=== PATIENT | male | born 1950 | race Caucasian/White ===

== ENCOUNTER 2018-10-15 18:38 | Inpatient (IN) | payer OTHER ==
[~2018-10-15] VITALS: Ht 182.9 cm; Wt 136.6 kg
--- NOTE | ~2018-10-15 | HC ---
[facility] [place] [address] [address] CONSULTATION Name: TARAH MELGAR Room #: 427-P ADM IN M.R.#: [id number] Admission: 10/15/18 Attend Phys: Joseph Caruso MD Discharge: Date of : 48 Report #: [id number] THIS REPORT FOR: //name// CC: Alis Caruso DATE OF SERVICE: 10/16/2018 CHIEF COMPLAINT: Left third toe ulceration with osteomyelitis. HISTORY OF PRESENT ILLNESS: This is a 67-year-old male patient who was admitted to the hospital through the Emergency Department after noting swelling and an open wound to the left third toe. Apparently, it has just been draining for the last couple of days. He has a history of diabetes mellitus and previous osteomyelitis of the second toe and has undergone a partial amputation in the past. PAST MEDICAL HISTORY: Includes previous cellulitis of the left foot, diabetes, history of previous osteomyelitis, partial amputation of the left second toe. He has a history of obesity, pneumonia, hyperlipidemia, hypertension, previous left hip fracture and some history showing Osmel's granulomatosis. SOCIAL HISTORY: Negative for alcohol or tobacco use. FAMILY HISTORY: Positive for heart disease and diabetes. MEDICATIONS: Include Tylenol, Ozempic, Lipitor, Myrbetriq, Zestoretic, aspirin. ALLERGIES: TO PENICILLIN. REVIEW OF SYSTEMS: CONSTITUTIONAL: No fever, chills, weight loss. NEUROLOGICAL: The patient denies focal weakness. ENT: The patient denies earache, nasal drainage or sore throat. CARDIOVASCULAR: The patient denies chest pain, palpitations, diaphoresis. PULMONARY: The patient denies cough or shortness of breath. GASTROINTESTINAL: The patient denies nausea, vomiting, diarrhea or abdominal pain. ORTHOPEDIC: The patient is aware of the ulceration on the left third toe. Other systems in a 14-point review of systems are negative. PHYSICAL EXAMINATION: VITAL SIGNS: At this time include pulse 71, respirations 16, blood pressure 104/65, temperature 97.8. GENERAL: This is a chronically ill-appearing male patient who appears to be in minimal distress. [address] [address] CONSULTATION Name: TARAH MELGAR Room #: 427-P ADM IN M.R.#: [id number] Admission: 10/15/18 Attend Phys: Joseph Caruso MD Discharge: Date of : 48 Report #: [id number] HEENT: Head is normocephalic. Nose and throat clear. NECK: Supple. LUNGS: audible. ABDOMEN: Soft. Bowel sounds present. EXTREMITIES: Lower extremities demonstrate palpable distal pulses. He has an absent distal phalanx of the left second toe. The left third toe is erythematous and swollen, the nail is absent. NEUROLOGIC: The patient is alert and oriented and appropriate. LABORATORY DATA: Includes sodium 136, potassium is 3.8, CO2 of 26, BUN 13, creatinine 1.1, glucose 163. SGOT is 17, total bilirubin 0.7, calcium is 9.1, alkaline phosphatase 90, albumin 3.6. White blood cell count is 7.0, hemoglobin 16.6, hematocrit of 47.8. Left lower extremity arterial Doppler demonstrates preservation of normal arterial blood flow down to the ankle level. No focal velocity elevation is seen. No suggestion of hemodynamically significant stenosis. MRI of the left foot demonstrates abnormal signal involving the distal phalanx of the third toe consistent with osteomyelitis. CLINICAL IMPRESSION: 1. Ulceration and infection of the left third toe. 2. Diabetes mellitus. 3. Osteomyelitis, left third toe. RECOMMENDATIONS: The patient has been seen by Dr. Hinkle of the Podiatry service and he is scheduled for surgical debridement, likely amputation of the distal phalanx of the third toe, which I think is entirely appropriate. The patient is being seen by Infectious Disease, will require some antibiotic postoperatively; however, I believe that the surgical intervention would be definitive care for this and he likely will be able to heal well given his normal vascular flow. I do appreciate being asked to see him in consultation. By: [id number] [id number] Fady Abraham MD /nt
[~2018-10-15 18:38] MED LIST: COLACE100 MG PO; LISINOPRIL20 MG PO; MOM PO; NOHOMEMEDICATIONS; SENNA LAXATIVE8.6 MG PO; TRAMADOL 50 MG50 MG PO; TYLENOL325 MG PO
[2018-10-15 18:39] VITALS: BP 146/98
[2018-10-15 19:42] LABS: ABSOLUTE NEUTROPHILS 4.9 thou/uL (1.4-8.2); BASOPHILS 0.7 % (0.0-2.0); HEMATOCRIT 47.8 % (42.0-52.0); HEMOGLOBIN 16.6 gm/dL (14.0-18.0); LYMPHOCYTES 17.3 % (24.0-44.0); MCH 31.7 pg (26.0-34.0); MCHC 34.6 g/dL (28.0-37.0); MCV 91.4 fL (80.0-100.0); MONOCYTES 9.7 % (1.0-8.0); PLATELET COUNT 164 thou/uL (150-400); POLYS 70.3 % (36.0-66.0); RBC 5.23 mil/uL (4.50-6.00); RDW 13.4 % (10.5-14.5)
[2018-10-15 19:49] LABS: CALCIUM 9.1 mg/dL (8.5-10.1); CREATININE 1.1 mg/dL (0.7-1.3); POTASSIUM 3.8 mmol/L (3.5-5.1)
[2018-10-15 20:00] LABS: ALBUMIN 3.6 g/dL (3.4-5.0); TOTAL BILIRUBIN 0.7 mg/dL (<0.1-1.0); TOTAL PROTEIN 7.4 g/dL (6.4-8.2)
[2018-10-15] MEDS ORDERED: ATORVASTATIN CA40 MG PO (21:05)
[2018-10-15] MEDS ORDERED: OZEMPIC1 MG/0.75 SUBQ (21:05)
[2018-10-15] MEDS ORDERED: MYRBETRIQ50 MG PO (21:06)
[2018-10-15] MEDS ORDERED: ASPIR 8181 MG PO (21:06)
[2018-10-15] MEDS ORDERED: ZESTORETIC 20-1 EAC3 PO (21:06)
[2018-10-15 21:25] VITALS: BP 121/68
[2018-10-15 21:52] VITALS: BP 107/73
[2018-10-15 22:00] VITALS: BP 108/74
--- NOTE | 2018-10-16 02:46 | NUR ---
PT ADMITTED INTO ROOM 427 AT AROUND 2200.PT ALERT AND ORIENTED.DENIES PAIN.L FOOT WITH SWELLING AND ERYTHEMA.STABLE ON ROOM AIR.NPO AFTER MIDNOC. AFEBRILE. CONTINUES ON IV ABTS.WILL CONTINUE WITH POC TILL EOS.
[2018-10-16 03:20] VITALS: BP 100/65
[2018-10-16 07:25] VITALS: BP 104/65
--- NOTE | 2018-10-16 11:06 | NUR ---
ASSESMENT COMPLETED. VSS. A/O. DENIES PAIN. NO NOTED SOA. NO NV. PT NPO AFTER BREAKFAST. PLANS FOR SURGERY THIS AFTERNOON. NO CONERNS AT THIS TIME. WILL CONT. TO MONITOR.
--- NOTE | 2018-10-16 12:35 | HC ---
[facility] [address] [address] CONSULTATION Name: TARAH MELGAR Room #: 427-P ADM IN M.R.#: [id number] Admission: 10/15/18 Attend Phys: Joseph Caruso MD Discharge: Date of : 49 Report #: [id number] THIS REPORT FOR: //name// CC: Alis Caruso HISTORY OF PRESENT ILLNESS: The patient is a 67-year-old diabetic male who presented to the ER yesterday, 10/15/2018 with complaints of swelling, ulceration and redness to his left third toe. He states he only noticed it yesterday after he removed his boot after work. He contacted myself, Dr. Hinkle by my emergency phone line with concerns. He was instructed to go straight to [facility] Emergency Room for further workup. The patient has a history of diabetes and osteomyelitis of the left second toe that required a partial amputation approximately 4 years ago due to bone infection. This surgery was performed by myself, Dr. Hinkle. He has not had any issues over the last few years with his feet until now. He denies any fever, chills, nausea or vomiting. He denies any pain to the toe. He states since yesterday being on antibiotics his toe has significantly improved. PHYSICAL EXAMINATION: Palpable DP pulses. PT pulses hard to palpate. CFT brisk to all toes. Light touch sensation diminished to all pedal dermatomes. Left third toe swollen, erythematous with a blister to the distal tuft underlying the nail. With debridement this morning. there was purulence expressed. This had been previously cultured yesterday. All drainage was removed and underlying ulceration appeared only deep to dermis and no direct probing to bone. No undermining, tracking or further abscess or fluctuance present. No malodor. The erythema is extending towards the proximal phalanx of the left third toe. The ascending cellulitis to the third MPJ has mostly resolved. There is no crepitation at this point present. There are hammertoes bilateral 2 through 5 with absent partial left second toe amputation. Arterial duplex was within normal limits. The x-ray with questionable bony changes to the distal phalanx and early osteomyelitis cannot be excluded. ASSESSMENT: A 67-year-old diabetic male with cellulitis to left third toe with possible osteomyelitis. PLAN: He is afebrile with no leukocytosis. Arterial study within normal limits. X-ray with concerns of osteomyelitis. Pending an MRI of the left foot for further workup. At bedside this morning, further debridement was performed with removal of the left third nail with no underlying direct probing to the bone. We will await the MRI, but at this time, he is consented for a partial third toe amputation and incision and drainage if needed later today. He will be n.p.o. after breakfast. Surgical consent was signed and placed in the chart. He is currently on vancomycin and Zosyn and pending further examination by Infectious Disease specialist. Recommend rest and elevation and offloading the [address] [address] CONSULTATION Name: TARAH MELGAR Room #: 427-P ADM IN M.R.#: [id number] Admission: 10/15/18 Attend Phys: Joseph Caruso MD Discharge: Date of : 48 Report #: [id number] left third toe at this time with dry dressings. I will follow him closely and provide further recommendations. <ELECTRONICALLY SIGNED> By: Wendy Hinkle DPM 10/16/18 1235 [id number] Wendy Hinkle DPM /nt
--- NOTE | 2018-10-16 13:30 | NUR ---
WOUND CONSULT: PT. WAS SEEN TODAY BY DR. JALLOH AND MYSELF. PT. HAS CELLULITIS WITH ULCERATION TO HIS LEFT 3RD TOE. OSTEO WAS CONFIMED ON THE MRI AND PT. IS ALSO BEING SEEN BY DR. NERI FOR SURGICAL INTERVENTION. RECOMMENDATIONS: VASELINE GAUZE, CHANGE DAILY AND PRN. PT. AND STAFF NURSE WERE INSTRUCTED ON PLAN OF CARE.
--- NOTE | 2018-10-16 13:53 | NUR ---
ASSESSMENT: CM REVIEWED CHART AND MET WITH PATIENT AT THE BEDSIDE. PT IS ALERT AND ORIENTED X4. PT WAS ADMITTED WITH CELLULITIS OF TOE ON THE LEFT FOOT. PT HAD MRI DONE THAT CONFIRMED OSTEO AND PATIENT IS TO HAVE TOE AMPUTATED LATER TODAY. PT REPORTS HE LIVES IN AN APT ALONE. PT REPORTS HAVING 3 STEPS WITH NO HANDRAILS TO GET INTO THE APT. PT REPORTS HE HAS A GRAB BAR IN THE SHOWER AND IS INDEPENDENT WITH ADLS AND AMBULATION. PT REPORTS HE HAS A CPAP AT HOME BUT NEVER USES IT AND WAS SUPPLIED BY [facility] PATIENT. PT REPORTS HE HAD BEEN TO [facility] IN THE PAST AFTER HAVING A BROKEN LEG IN 2002 AND REPORTS HE HAD [facility] IN THE PAST AFTER A DIFFERENT TOE AMPUTATION. CM DISCUSSED ROLE AND PT WOULD LIKELY BENEFIT FROM HH AT DISCHARGE. PT STATES HED LIKE TO USE [facility] AGAIN, CM NOTIFIED [facility]. PT REPORTS HAVING A SON WHO LIVES IN [place] BUT STATES HIS SISTER LIVES IN [facility] AND IS VERY SUPPORTIVE. CM WILL CONTINUE TO FOLLOW TO ASSIST NEEDED.
--- NOTE | 2018-10-16 15:54 | NUR ---
SPOKE TO DR. BASS. SURGERY CANCELLED TODAY. RESUMED DIET ORDERED. PT TO [facility] TO [facility].
[2018-10-16 16:25] VITALS: BP 126/85
--- NOTE | 2018-10-16 16:43 | NUR ---
PATIENT TRANSFERRED TO THE UNIT AT APPROXIMATELY 1615. PATIENT ORIENTED TO THE UNIT. REPORT WAS GIVEN BY NURSE DECEMBER ON . PATIENT CAME FROM ROOM #427.
--- NOTE | 2018-10-17 03:01 | NUR ---
PATIENT ALERT AND ORIENTED X4. 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 REMAINS NWB ON THE L FOOT, USES WALKED TO GET AROUND. DENIES PAIN. SITTING UP IN CHAIR. SLEPT OFF AND ON DURING NIGHT,
[2018-10-17 06:47] LABS: HEMATOCRIT 46.7 % (42.0-52.0); HEMOGLOBIN 16.1 gm/dL (14.0-18.0); MCH 32.1 pg (26.0-34.0); MCHC 34.5 g/dL (28.0-37.0); MCV 93.1 fL (80.0-100.0); RBC 5.02 mil/uL (4.50-6.00); RDW 13.4 % (10.5-14.5); WBC 7.4 thou/uL (4.0-11.0)
[2018-10-17 07:01] LABS: CALCIUM 9.4 mg/dL (8.5-10.1); MAGNESIUM 2.1 mg/dL (1.8-2.4)
--- NOTE | 2018-10-17 07:34 | NUR ---
LICHA Gordillo/DR. BASS WRAPPED L TOE AND ORDERED STIFF BOOT, OVER MY SHOULDER, FOR PT WELL PT EVAL RE: BOOT AMBULATION, PT IS A&0X4, NO NEEDS AT THIS TIME, DENIES PAIN, REPORT GIVEN IV IS POSITIONAL, WILL WRAP ARM TO ENSURE FLUIDS RUNNING, ABX, AND PT IS BOTHERED BY ALARMS. ENCOURAGED PT TO USE CALL LIGHT FOR ANY NEEDS
--- NOTE | 2018-10-17 08:11 | HC ---
[facility] [place] [address] [address] [place] [address] CONSULTATION Name: TARAH MELGAR Room #: 220-P ADM IN M.R.#: [id number] Admission: 10/15/18 Attend Phys: Joseph Caruso MD Discharge: Date of : 49 Report #: [id number] THIS REPORT FOR: //name// CC: Alis Caruso DATE OF SERVICE: 10/16/2018 REASON FOR CONSULTATION: I was asked to evaluate the patient concerning status post diabetic left toe infection. HISTORY OF PRESENT ILLNESS: The patient is a 67-year-old diabetic with previous history of left second distal toe amputation for diabetic foot infection and osteomyelitis. This was in 2013. Cultures had revealed methicillin-susceptible Staph aureus at that point in time. Since then, he has lost weight and remains on his diabetic diet and medications. He checks his feet morning and at night. When he went to work yesterday, stated his foot was normal. Upon return, he noticed increased swelling, erythema, discomfort at the base of his left third toe. Erythema extended up his foot, presents to the Emergency Room for further evaluation last evening. He has had no fever, chills or sweats. He does have some peripheral neuropathy. He has hammertoe deformities. He did get new boots 2 weeks ago. No other trauma noted. ALLERGIES: PENICILLIN AND CEFAZOLIN WITH RASH. MEDICATIONS: As noted on his MAR including vancomycin and Zosyn. He was given Benadryl in the Emergency Room. He has had no reaction to this. PAST MEDICAL HISTORY: Hypertension, diabetes, peripheral neuropathy, obesity, hyperlipidemia, previous amputation on the left second toe and left tib-fib fracture, Osmel's granulomatosis remotely. FAMILY HISTORY: Coronary artery disease. SOCIAL HISTORY: Nonsmoker, no significant alcohol intake. REVIEW OF SYSTEMS: Ten-point review otherwise negative. PHYSICAL EXAMINATION: VITAL SIGNS: Afebrile, hemodynamically stable. GENERAL: He is alert, cooperative and pleasant, in no acute distress, sitting up to the side of his bed. EYES: Without conjunctivitis or scleral icterus. MOUTH: Without mucositis. NECK: Supple, with no thyromegaly or mass. No palpable adenopathy. SKIN: Without rash other than what will be described in his extremity [address] [address] CONSULTATION Name: TARAH MELGAR Room #: 220-P ADM IN M.R.#: [id number] Admission: 10/15/18 Attend Phys: Joseph Caruso MD Discharge: Date of : 48 Report #: [id number] examination. CHEST: Clear. HEART: Regular, without murmur. ABDOMEN: Soft and nontender. EXTREMITIES: Hammertoe deformities bilateral feet, previous left second toe distal amputation, third toe on the left, had sausage deformity with erythema. The nail had been removed by Dr. Paz earlier this morning. He had an ulceration of the distal aspect of his toe. There was a swelling with no purulence able to be expressed. The erythema extended to his forefoot. Pulses were palpable in the left lower extremity, groin, knee and foot. He had a bounding pulse, posterior tibial. Feel a faint pulse in the dorsalis pedis. Capillary refill adequate. Sensation was diminished in his foot from the mid foot distal to the touch and position sense. Strength normal upper and lower extremities. NEUROLOGIC: Cranial nerves intact. PSYCHIATRIC: Mood normal. LABORATORY STUDIES: X-ray showed distal phalanx, bony changes with gas in the soft tissues. Sodium 136, potassium 3.8, bicarbonate 26, creatinine 1.1. Liver function test normal. Hemoglobin 16.6, platelet count 164,000, WBC 7. CRP 8.1. Lactate 1.6. Blood cultures negative to date. Arterial studies of the left lower extremity showed no evidence of large vessel disease. MRI scan is pending. IMPRESSION: 1. A 67-year-old diabetic with hammertoe deformity, peripheral neuropathy and suspected small vessel vascular disease, who presents with left second toe diabetic foot infection with soft tissue infection and cellulitis extending up his proximal foot. I am concerned about possible osteomyelitis involving the distal phalanx. This will need to be further evaluated. Await MRI scan. 2. PENICILLIN AND CEPHALOSPORIN ALLERGY. 3. Hypertension. 4. Hyperlipidemia. 5. Obesity. 6. History of Osmel's granulomatosis. RECOMMENDATION: We will continue IV antibiotic therapy with vancomycin and ciprofloxacin. I am not comfortable with continuing him on a beta-lactam at this point in time. We will await MRI scan. Anticipate distal toe amputation due to his hammertoe deformity. This will eliminate the ongoing infectious process and will help also eliminate his hammertoe deformity. We will discuss [facility] [address] [place] [address] CONSULTATION Name: TARAH MELGAR Room #: 220-P ADM IN M.R.#: [id number] Admission: 10/15/18 Attend Phys: Joseph Caruso MD Discharge: Date of : 48 Report #: [id number] this further with Podiatry. If his MRI scan is normal, then we will plan to continue antibiotic therapy and wound care. <ELECTRONICALLY SIGNED> By: Anthony Alejandre MD 10/17/18 0811 [id number] [id number] Anthony Alejandre MD /nt
[2018-10-17 08:45] VITALS: BP 125/82
--- NOTE | 2018-10-17 09:40 | NUR ---
OTL ARRIVED WHEN PT WALKING PATIENT WITH WALKER; AWAITING BOOT. WITHOUT BOOT PATIENT WELL ABLE TO WALK ON HIS HEEL AROUND THE ROOM. DISCUSSED OCCUPATIONAL THERAPY WITH PATIENT WHO PLANS ON LEAVING TODAY AFTER HE GETS HIS BOOT AND GOING BACK TO WORK SATURDAY. DISCUSSED GETTING IN AND OUT OF TUB AT HOME, ADH ERING WITH NWB STATUS....PT HAD CONSISTENT IDEA OF HIS NWB STATUS AND DOES NOT FEEL HE NEEDS OT HERE OR AT HOME. PT HAS NO CONCERNS AT D/C AND PATIENT JOHN STRATED AN ACCURATE PICTURE OF HIS PRECAUTIONS AND HIS ABILITIES. NO OT RECOMMENDED AT THIS TIME.
--- NOTE | 2018-10-17 10:11 | NUR ---
DISCHARGE NOTE: ANGELY reviewed chart and spoke with nursing and attending physician. Pt was transferred to [facility] from and is medically stable for discharge home. Consult to arrange outpatient IV abx at [facility] outpatient infusion center. Pt will need Ertapenem 1 gm IV daily. ID physician will see pt in the outpatient infusion clinic on Saturday. Pt will have peripheral IV care. ANGELY met with pt at bedside to discuss discharge plan. Pt verbalized understanding. ANGELY explained that over the weekend, he will need to go to the ER for outpatient infusion. ANGELY faxed clinical info and orders to outpatient infusion clinic and left voice message for RN. Awaiting call back at this time. Pt will need first does of ertapenem prior to discharge. Instructions for outpatient infusion placed in pt's discharge summary. Pt's sister will provide transportation home. ANGELY is following to finalize discharge.
[2018-10-17 10:27] VITALS: BP 125/82
--- NOTE | 2018-10-17 14:27 | NUR ---
PT IS DONE W/IVF ABX, IV REMOVED, PT WAITING FOR HIS RIDE, IN [facility]. WILL BE W/C'D DOWN TO [facility] W/FAMILY. PAPERS ALL SIGNED
[2018-10-20] MEDS ORDERED: CIPRO500 MG PO (12:24)
== END 2018-10-17 15:22 | disposition home health service (06) | DRG 539 ==
LOC: ER 18:38 → EROBS 20:43 → 4E 20:43 → SICU 10-16 11:25 → 4E 10-16 11:26 → SICU 10-16 16:09 → ENTRNSPT 10-17 15:09 → EDTRNSPTSTS 10-17 15:14 → SICU 10-17 15:22
PROVIDERS: Physician Assistant; ADMIT Internal Medicine
PROC: 0HBRXZZ Excision of Toe Nail, External Approach (ICD-10-PCS; principal; 2018-10-16)
DX: M86.8X7 Other osteomyelitis, ankle and foot (principal); E43 Unspecified severe protein-calorie malnutrition; Z68.41 Body mass index [BMI] 40.0-44.9, adult; E11.51 Type 2 diabetes mellitus with diabetic peripheral angiopathy without gangrene; E11.621 Type 2 diabetes mellitus with foot ulcer; L97.529 Non-pressure chronic ulcer of other part of left foot with unspecified severity; E11.628 Type 2 diabetes mellitus with other skin complications; E11.69 Type 2 diabetes mellitus with other specified complication; L03.032 Cellulitis of left toe; I10 Essential (primary) hypertension; E66.01 Morbid (severe) obesity due to excess calories; N32.81 Overactive bladder; E11.42 Type 2 diabetes mellitus with diabetic polyneuropathy; E78.5 Hyperlipidemia, unspecified; M20.42 Other hammer toe(s) (acquired), left foot; M20.41 Other hammer toe(s) (acquired), right foot; Z87.81 Personal history of (healed) traumatic fracture; Z89.422 Acquired absence of other left toe(s); Z79.82 Long term (current) use of aspirin; Z79.899 Other long term (current) drug therapy; Z88.0 Allergy status to penicillin; Z88.8 Allergy status to other drugs, medicaments and biological substances; Z82.49 Family history of ischemic heart disease and other diseases of the circulatory system; Z83.3 Family history of diabetes mellitus; Z80.9 Family history of malignant neoplasm, unspecified
CPT/HCPCS: 10084; 15002

== ENCOUNTER → 2018-10-18 | Outpatient (CLI) | payer OTHER ==
[~2018-10-18] MED LIST changes: +ASPIR 8181 MG PO; +ATORVASTATIN CA40 MG PO; +CIPRO500 MG PO; +MYRBETRIQ50 MG PO; +OZEMPIC1 MG/0.75 SUBQ; +ZESTORETIC 20-1 EAC3 PO
== END ==
LOC: OPONC 10:01
DX: L03.032 Cellulitis of left toe (principal)
CPT/HCPCS: 95000

== ENCOUNTER → 2018-10-20 | Outpatient (CLI) | payer OTHER ==
[2018-10-20 12:01] LABS: HEMOGLOBIN 16.6 gm/dL (14.0-18.0); MCH 32.6 pg (26.0-34.0); MCHC 35.5 g/dL (28.0-37.0); MCV 91.8 fL (80.0-100.0); RBC 5.11 mil/uL (4.50-6.00); RDW 13.2 % (10.5-14.5); WBC 9.7 thou/uL (4.0-11.0)
[2018-10-20 12:15] LABS: ALBUMIN 3.6 g/dL (3.4-5.0); CALCIUM 9.2 mg/dL (8.5-10.1); POTASSIUM 3.9 mmol/L (3.5-5.1); TOTAL BILIRUBIN 1.1 mg/dL (<0.1-1.0); TOTAL PROTEIN 7.6 g/dL (6.4-8.2)
[2018-10-20 14:17] VITALS: BP 101/70
--- NOTE | 2018-10-20 14:22 | NUR ---
IN FOR DAILY ERTAPENEM INFUSION. STATED FEELING FINE. DENIED FEVER, CHILLS, DIARRHEA. STATES TOE DOES NOT HURT BUT HAS CHRONIC LOW BACK PAIN WHICH HE RATED A #4. ADMISSION HISTORY AND ASSESSMENT COMPLETED. IV STARTED IN LEFT ARM AND INFUSED ERTAPENEM OVER 30 MIN. TOLERATED WELL WITH NO ADVERSE REACTION NOTED. DR. LEAL VISITED. LEFT 3RD TOE ERYTHEMA, EDEMA NOTED. OPEN AREA ON BOTTOM OF TOE PINK/HEALING. WOUND CULTURE RESULTS POSITIVE FOR MRSA. DR. LEAL CHANGED IV ANTIBIOTIC TO DAPTOMYCIN WHICH WILL START TOMORROW. PATIENT REDRESSED OWN TOE. IS WEARING A PRAFO BOOT ON LEFT FOOT. INSTRUCTED TO RETURN TOMORROW AND THROUGH NEXT SATURDAY FOR DAILY DAPTOMYCIN INFUSION. STATED UNDERSTANDING. DISMISSED IN GOOD CONDITION.
== END ==
LOC: OPONC 09:14
PROVIDERS: Specialist
DX: L03.032 Cellulitis of left toe (principal)
CPT/HCPCS: 95000

== ENCOUNTER → 2018-10-21 | Outpatient (CLI) | payer OTHER ==
[2018-10-21 10:45] VITALS: BP 112/75
--- NOTE | 2018-10-21 11:14 | NUR ---
IN FOR DAILY DAPTOMYCIN INFUSION. CARE NOTE GIVEN ON DAPTOMYCIN AND DISCUSSED POSSIBLE SIDE EFFECTS WITH PATIENT. DENIES DIARRHEA, FEVER, CHILLS, N/V. TOLERATED INFUSION WELL WITH NO ADVERSE REACTION NOTED. SALINE LOCKED IV. TO RETURN TOMORROW FOR NEXT INFUSION. DISMISSED IN STABLE CONDITION.
== END ==
LOC: OPONC 00:17
DX: L03.032 Cellulitis of left toe (principal)
CPT/HCPCS: 95000

== ENCOUNTER → 2018-10-22 | Outpatient (CLI) | payer OTHER ==
[~2018-10-22] MED LIST changes: +CUBICIN500 MG IVPB; +PREDNISONE 20 M20 MG PO; +SYMBICORT160 MCG/4. INH; +VENTOLIN HFA 1818 GM INH
[2018-10-22 11:30] VITALS: BP 112/79
--- NOTE | 2018-10-22 11:50 | NUR ---
HERE FOR DAILY IV ANTIBIOTIC. SWITCH WAS MADE YESTERDAY TO DAPTOMYCIN. PT REPORTS THROAT BURNING, DYSPEPSIA AND NAUSEA YESTERDAY EVENING. STATES HAD TO SLEEP UPRIGHT IN CHAIR. PT WONDERING IF THIS COULD BE R/T HIS ANTIBIOTIC. JUST STARTED ON HIS ORAL CIPRO YESTERDAY. ADVISED PT TO TAKE CIPRO WITH FOOD AND A FULL GLASS OF WATER. ALSO, OK TO START ON ZANTAC OR PEPCID OVER THE COUNTER AND FOLLOW PACKAGE DIRECTIONS. PT HAS NOT YET TAKEN TODAY'S CIPRO BUT WILL DO SO WITH LUNCH WHEN HE LEAVES HERE POST INFUSION. DENIES ANY FEVER/CHILLS/SWEATS. NO C/O PAIN. STATES SAW DR. BASS WHO REDRESSED HIS FOOT. PT HAS PURCHASED SUPPLIES FOR HOME DRESSING CHANGES AND STATES CAN MANAGE THESE HIMSELF. SALINE LOCK PLACED OVER THE WEEKEND IN THE ED IS STILL PATENT SO USED FOR INFUSION AGAIN TODAY. PT TOLERATED INFUSION WITHOUT INCIDENT. DISMISSED IN STABLE CONDITION. SCHEDULED TO RETURN AGAIN IN THE MORNING.
== END ==
LOC: OPONC 06:43
DX: L03.032 Cellulitis of left toe (principal)
CPT/HCPCS: 95000

== ENCOUNTER → 2018-10-23 | Outpatient (CLI) | payer OTHER ==
[~2018-10-23] MED LIST changes: -CUBICIN500 MG IVPB; -SYMBICORT160 MCG/4. INH
[2018-10-23 11:25] VITALS: BP 109/67
--- NOTE | 2018-10-23 11:51 | NUR ---
HERE FOR DAILY DAPTOMYCIN INFUSION. REPORTS DOING MUCH BETTER YESTERDAY. TOOK CIPRO WITH MEAL AND FULL GLASS OF WATER AND STATES NO NAUSEA YESTERDAY. FEELING A LITTLE CONSTIPATED AND IS PLANNING TO ADD SOME FRUIT AND HOT BEVERAGE TO SEE IF THIS WILL BE ADEQUATE TO HELP. TOLERATED TODAY'S INFUSION WITHOUT INCIDENT. SALINE LOCK DC'D POST INFUSION TODAY FOR SITE ROTATION. DISMISSED IN STABLE CONDITION. SCHEDULED TO RETURN IN THE MORNING.
== END ==
LOC: OPONC 00:46
DX: L03.032 Cellulitis of left toe (principal); A49.02 Methicillin resistant Staphylococcus aureus infection, unspecified site
CPT/HCPCS: 95000

== ENCOUNTER → 2018-10-24 | Outpatient (CLI) | payer OTHER ==
[2018-10-24 12:18] VITALS: BP 118/93
== END ==
LOC: OPONC 02:22
DX: L03.032 Cellulitis of left toe (principal); L08.9 Local infection of the skin and subcutaneous tissue, unspecified
CPT/HCPCS: 95000

== ENCOUNTER → 2018-10-25 | Outpatient (CLI) | payer OTHER | LOC: OPONC 07:29 | DX: L03.032 Cellulitis of left toe (principal); L08.9 Local infection of the skin and subcutaneous tissue, unspecified | CPT/HCPCS: 95000 ==

== ENCOUNTER → 2018-10-26 | Outpatient (CLI) | payer OTHER | LOC: OPONC 05:26 | DX: L03.032 Cellulitis of left toe (principal); L08.9 Local infection of the skin and subcutaneous tissue, unspecified | CPT/HCPCS: 95000 ==

== ENCOUNTER → 2018-10-27 | Outpatient (CLI) | payer OTHER ==
[2018-10-27 11:38] LABS: HEMOGLOBIN 15.1 gm/dL (14.0-18.0); MCH 31.4 pg (26.0-34.0); MCHC 34.4 g/dL (28.0-37.0); MCV 91.3 fL (80.0-100.0); RBC 4.82 mil/uL (4.50-6.00); RDW 12.9 % (10.5-14.5); WBC 4.5 thou/uL (4.0-11.0)
[2018-10-27 11:41] VITALS: BP 120/80
[2018-10-27 11:47] LABS: ALBUMIN 3.3 g/dL (3.4-5.0); CALCIUM 8.5 mg/dL (8.5-10.1); CREATININE 1.1 mg/dL (0.7-1.3); POTASSIUM 3.7 mmol/L (3.5-5.1); TOTAL BILIRUBIN 0.6 mg/dL (<0.1-1.0); TOTAL PROTEIN 7.2 g/dL (6.4-8.2)
--- NOTE | 2018-10-27 12:39 | NUR ---
IN FOR DAILY DAPTOMYCIN INFUSION FOR CELLULITIS/OSTEOMYELITIS/MRSA LEFT 3RD TOE. DR. LEAL VISITED. PATIENT TO CONTINUE THE SAME FOR ANOTHER WEEK. WILL PLACE MIDLINE TOMORROW PATIENT HAS POOR IV ACCESS. TOLERATED INFUSION WELL. MAIN COMPLAINT IS CONSTIPATION WITH NO BOWELL MOVEMENT FOR ONE WEEK. DR. LEAL INSTRUCTED PATIENT TO TAKE COLACE AND MIRALAX. SALINE LOCKED IV. TO RETURN TOMORROW FOR NEXT INFUSION. DISMISSED IN STABLE CONDITION.
== END ==
LOC: OPONC 07:51
PROVIDERS: Specialist
DX: E11.628 Type 2 diabetes mellitus with other skin complications (principal); L03.032 Cellulitis of left toe; B95.62 Methicillin resistant Staphylococcus aureus infection as the cause of diseases classified elsewhere; E11.69 Type 2 diabetes mellitus with other specified complication; M86.9 Osteomyelitis, unspecified; E11.42 Type 2 diabetes mellitus with diabetic polyneuropathy
CPT/HCPCS: 95000

== ENCOUNTER → 2018-10-28 | Outpatient (CLI) | payer OTHER ==
--- NOTE | 2018-10-28 11:57 | NUR ---
VASCULAR ACCESS CONSULTED FOR MIDLINE FOR OP ANTIBIOTICS. PT'S LABS,MEDS AND HISTORY REVIEWED. DISCUSSED BENEFITS AND RISKS WITH PT,VERBALIZED UNDERSTANDING AND GAVE VERBALCONSENT TO PROCEDE. PT WAS PREPPED AND DRAPED FOR MAX BARRIER PRECAUTIONS.RAMESH CEPHALIC WAS WIDELY PATENT WITH USG. 1% LIDOCAINE GIVEN SQ. 4FR POWER MIDLINE TRIMMED TO 12CM INSERTED TO 0CM WITH BRISK BR. ML SECURED ,RELEASED FOR IMMEDIATE USE PER PROTOCOL.
[2018-10-28 12:26] VITALS: BP 101/64
--- NOTE | 2018-10-28 12:31 | NUR ---
IN FOR DAILY DAPTOMYCIN INFUSION. PATIENT HAS A COLD AND IS NOT FEELING WELL TODAY. HAS A DR. GEORGE AT 1245 WITH HIS PRIMARY CARE PHYSICIAN. IV TEAM PLACED A MIDLINE IN RAMESH CEPHALIC VEIN. SITE LOOKS GOOD AND DRESSING C/D/I. TOLERATED INFUSION WELL WITHOUT INCIDENT. FLUSHED MIDLINE AND RECEIVED GOOD BLOOD RETURN. TO RETURN TOMORROW FOR NEXT INFUSION. DISMISSED IN STABLE CONDITION.
== END ==
LOC: OPONC 00:29
DX: L03.032 Cellulitis of left toe (principal)
CPT/HCPCS: 27000; 95000

== ENCOUNTER → 2018-10-29 | Outpatient (CLI) | payer OTHER ==
[2018-10-29 11:15] VITALS: BP 115/78
--- NOTE | 2018-10-29 12:00 | NUR ---
HERE FOR DAILY DAPTO INFUSION. REPORTS DOING WELL. HAD VISIT THIS WEEK WITH HIS PCP REGARDING AN UPPER RESPIRATORY INFECTION AND FEELS HIS IS DOING MUCH BETTER NOW THAT HE HAS ADDED PREDNISONE DAILY X 5 DAYS AND AN ALBUTEROL INHALER. DENIES FEVER/CHILLS. NO CONCERNS VERBALIZED REGARDING HIS FOOT. NEW MIDLINE WORKING GREAT. DAPTO INFUSED WITHOUT INCIDENT. DISMISSED IN STABLE CONDITION. SCHEDULED TO RETURN IN THE MORNING.
== END ==
LOC: OPONC 00:48
DX: L03.032 Cellulitis of left toe (principal)
CPT/HCPCS: 95000

== ENCOUNTER → 2018-10-30 | Outpatient (CLI) | payer OTHER ==
[~2018-10-30] MED LIST changes: +CUBICIN500 MG IVPB; +SYMBICORT160 MCG/4. INH
[2018-10-30 11:39] VITALS: BP 103/61
--- NOTE | 2018-10-30 11:57 | NUR ---
IN FOR DAILY DAPTOMYCIN INFUSION. STATED FEELING MUCH BETTER TODAY. HE HAS HAD A COLD. DENIED N/V/FEVER/CHILLS/DIARRHEA. TOLERATED INFUSION WITHOUT INCIDENT. VITAL SIGNS GOOD. AFEBRILE. MIDLINE ACCIDENTALLY PULLED OUT WHEN CHANGING DRESSISNG. CALLED IV TEAM AND WILL REPLACE IT TOMORROW. DISMISSED IN GOOD CONDITION.
== END ==
LOC: OPONC 00:34
DX: L03.032 Cellulitis of left toe (principal)
CPT/HCPCS: 95000

== ENCOUNTER → 2018-10-31 | Outpatient (CLI) | payer OTHER ==
[2018-10-31 11:50] VITALS: BP 84/55
--- NOTE | 2018-10-31 11:50 | NUR ---
VASCULAR ACCESS CONSULTED TO REPLACE MIDLINE THAT WAS ACCIDENTLY PULLED OUT YESTERDAY. PT WAS PREPPED AND DRAPED FOR MAX BARRIER PRECAUTIONS. 1% LIDOCAINE GIVEN SQ. RAMESH CEPHALIC WIDELY PATENT WITH USG. 4FR POWER MIDLINE TRIMMED TO 12CM INSERTED TO 0CM WITH BRISK BR. LINE SECURED AND RELEASED FOR IMMEDIATE USE PER PROTOCOL TO AURELIO IGLESIAS
--- NOTE | 2018-10-31 12:35 | NUR ---
HERE FOR DAILY IV DAPTOMYCIN. REPORTS DOING WELL. STATES COUGH RESOLVED, DENIES DYSPNEA. DENIES FEVER/CHILLS, N/V/DIARRHEA. EATING WELL. VASCULAR ACCESS TEAM REPLACE MIDLINE TODAY. DRESSING IS INTACT AND LINE SECURED WITH SURGILAST PRIOR TO DISMISSAL. PT TO REPORT TO THE ED FOR WEEKEND INFUSIONS AND VERBALIZES UNDERSTANDING OF PLANS. TOLERATED INFUSION TODAY WITHOUT INCIDENT. DISMISSED IN STABLE CONDITION.
== END ==
LOC: OPONC 06:07
DX: L03.032 Cellulitis of left toe (principal)
CPT/HCPCS: 27000; 95000

== ENCOUNTER → 2018-11-01 | Outpatient (CLI) | payer OTHER | LOC: OPONC 06:12 | DX: L03.032 Cellulitis of left toe (principal); E11.628 Type 2 diabetes mellitus with other skin complications; A49.02 Methicillin resistant Staphylococcus aureus infection, unspecified site | CPT/HCPCS: 95000 ==

== ENCOUNTER → 2018-11-02 | Outpatient (CLI) | payer OTHER | LOC: OPONC 06:17 | DX: L03.032 Cellulitis of left toe (principal); E11.628 Type 2 diabetes mellitus with other skin complications; A49.02 Methicillin resistant Staphylococcus aureus infection, unspecified site | CPT/HCPCS: 95000 ==

== ENCOUNTER → 2018-11-03 | Outpatient (CLI) | payer OTHER ==
[2018-11-03 11:10] VITALS: BP 91/66
[2018-11-03 11:57] LABS: HEMATOCRIT 45.8 % (42.0-52.0); HEMOGLOBIN 15.9 gm/dL (14.0-18.0); MCH 31.8 pg (26.0-34.0); MCHC 34.8 g/dL (28.0-37.0); MCV 91.2 fL (80.0-100.0); RBC 5.02 mil/uL (4.50-6.00); WBC 6.4 thou/uL (4.0-11.0)
[2018-11-03 12:11] LABS: ALBUMIN 3.1 g/dL (3.4-5.0); CALCIUM 8.6 mg/dL (8.5-10.1); CREATININE 1.2 mg/dL (0.7-1.3); POTASSIUM 3.6 mmol/L (3.5-5.1); TOTAL BILIRUBIN 0.5 mg/dL (<0.1-1.0); TOTAL PROTEIN 6.7 g/dL (6.4-8.2)
--- NOTE | 2018-11-03 12:40 | NUR ---
IN FOR DAILY DAPTOMYCIN INFUSION. DENIED PAIN, N/V, FEVER/CHILLS, MUSCLE ACHES, DIARRHEA. WOUND TO LEFT 3RD TOE IMPROVING. LESS EDEMA HOWEVER ERYTHEMA PRESENT. OPEN AREA ON END OF TOE PINK, MOIST, NO DRAINAGE. UNABLE TO GET BLOOD RETURN FROM MIDLINE BUT FLUSHED EASILY. TOLERATED INFUSION WITHOUT INCIDENT. DR. LEAL VISITED. PLAN IS TO CONTINUE THE SAME. PATIENT IS SEEING DR. BASS TOMORROW MORNING AND THEN WILL COME FOR INFUSION. DISMISSED TO WORK IN STABLE CONDITION.
== END ==
LOC: OPONC 00:27
PROVIDERS: Specialist
DX: L03.032 Cellulitis of left toe (principal); E11.628 Type 2 diabetes mellitus with other skin complications
CPT/HCPCS: 95000

== ENCOUNTER → 2018-11-04 | Outpatient (CLI) | payer OTHER ==
[2018-11-04 11:49] VITALS: BP 127/89
== END ==
LOC: OPONC 00:57
DX: L03.032 Cellulitis of left toe (principal)
CPT/HCPCS: 95000

== ENCOUNTER → 2018-11-05 | Outpatient (CLI) | payer OTHER ==
[2018-11-05 11:10] VITALS: BP 98/57
--- NOTE | 2018-11-05 11:49 | NUR ---
HERE FOR DAILY IV DAPTOMYCIN INFUSION. REPORTS DOING WELL. DENIES N/V/DIARRHEA, FEVER/CHILLS/SWEATS, MUSCLES ACHES OR WEAKNESS OR ANY OTHER CONCERNS. MIDLINE INTACT, FLUSHES EASILY, DAPTO INFUSED WITHOUT INCIDENT. PT TOOK A CALL FROM THE [facility]ION [facility]IC WHILE HERE TO UPDATE HISTORY AND RECEIVE INSTRUCTIONS FOR TOMORROW'S SURGERY. COORDINATED WITH SURGERY TO HAVE PT ARRIVE AT 1300 IN THE INFUSION CLINIC FOR HIS DAPTO THEN GO DIRECTLY TO PRE-OP HOLDING. PT ABLE TO VERBALIZE GOOD UNDERSTANDING OF ALL INSTRUCTIONS. DISMISSED IN STABLE CONDITION.
== END ==
LOC: OPONC 00:15
DX: L03.032 Cellulitis of left toe (principal)
CPT/HCPCS: 95000

== ENCOUNTER 2018-11-06 05:26 | Day surgery (SDC) | payer OTHER ==
[~2018-11-06] VITALS: Ht 190.5 cm; Wt 127.5 kg
[2018-11-06 13:00] VITALS: BP 109/73
[2018-11-06 13:41] VITALS: BP 127/79
--- NOTE | 2018-11-06 13:54 | NUR ---
PT CAME TO THE INFUSION CLINIC TODAY FOR HIS DAILY IV DAPTOMYCIN, GIVEN TODAY PRIOR TO HIS SURGERY. PT REPORTS NO CONCERNS. INFUSION COMPLETED WITHOUT INCIDENT IN PATENT MIDLINE. TRANSPORTED TO PRE-OP HOLDING BY VOLUNTEER TRANSPORT UPON COMPLETION AT 1320. SISTER AT HIS SIDE. PT SCHEDULED TO RETURN HERE AGAIN IN THE MORNING FOR HIS DAPTOMYCIN.
--- NOTE | 2018-11-13 16:06 | PATH ---
[facility] [address] [place] [address] PATHOLOGY RPT PROCEDURE Name: TARAH MELGAR Room #: DEP [facility] [place] M.R.#: [id number] ������������������ Admission: 11/06/18 ������������������ Date of : 48 Discharge: 11/06/18 Report #: [id number] Path Case #: [id number] LCA Accession Number: [id number] . 01 Material submitted: . LEFT THIRD TOE PARTIAL AMPUTATION . 01 Clinical history: . Osteomyelitis left third toe . 02 Diagnosis: Toe "left third toe", partial amputation: - Acute ulceration with necrotic acute inflammatory exudate extending into the underlying bone with periosteal fibrosis and chronic osteomyelitis. The skin and bone surgical resection margins are viable. (SHA:sher; 11/10/2018) QMS/11/10/2018 . 02 Electronically signed: . Jf Hebert MD, Pathologist NPI- [id number] . 01 Gross description: . The specimen is received in formalin, labeled "Tarah Melgar, left third toe partial amputation". Received is a partial amputated digit measuring 2.2 x 1.8 x 1.6 cm in greatest dimensions. The bone margin is smooth and concave in appearance, consistent with disarticulation. Skin is absent on the plantar aspect of the specimen. The bone and soft tissue margins are inked black. The nail is present displaying a light radford, thickened appearance and is loosely attached to the specimen. The distal aspect of the specimen displays a well-circumscribed, light radford lesion measuring 1.5 x 1.3 cm, which is 0.3 cm from the skin margin. A full-thickness longitudinal cross section is submitted in cassette A1, following decalcification. (CAA; 11/07/2018) QAC/QAC . 02 Pathologist provided ICD-10: M86.672, L97.529 . 02 CPT . 303056, 033396 Specimen Comment: A courtesy copy of this report has been sent to Specimen Comment: [phone], . Specimen Comment: Report sent to / DR LEVINE Specimen Comment: A duplicate report has been generated [place] [address] PATHOLOGY RPT PROCEDURE Name: TARAH MELGAR Room #: DEP [facility] [place] M.Barb#: [id number] ������������������ Admission: 11/06/18 ������������������ Date of : 48 Discharge: 11/06/18 Report #: [id number] Path Case #: [id number] Performed at: 01 [facility] Stephania Bennett [address], [place], [place] [id number] MD Rigo Nails MD Phone: [phone] Performed at: [address] [id number] MD Luz Maria Son MD Phone: [phone]
== END 2018-11-06 16:40 | disposition home or self-care (01) ==
LOC: OR 05:26 → TBA 05:26 → OR 09:44
DX: M86.672 Other chronic osteomyelitis, left ankle and foot (principal); M20.42 Other hammer toe(s) (acquired), left foot; L03.032 Cellulitis of left toe; I10 Essential (primary) hypertension; E11.9 Type 2 diabetes mellitus without complications; J45.909 Unspecified asthma, uncomplicated; E78.5 Hyperlipidemia, unspecified; Z98.890 Other specified postprocedural states; Z79.4 Long term (current) use of insulin; Z88.0 Allergy status to penicillin; Z79.899 Other long term (current) drug therapy
CPT/HCPCS: 50010; 50101; 50386; 56525; 57091; 57178; 95000

== ENCOUNTER → 2018-11-07 | Outpatient (CLI) | payer OTHER ==
[2018-11-07 12:10] VITALS: BP 107/74
--- NOTE | 2018-11-07 12:35 | NUR ---
HERE FOR DAILY IV DAPTOMYCIN INFUSION. REPORTS DOING WELL TODAY POST HIS SURGERY YESTERDAY FOR PARTIAL 3RD TOE AMPUTATION. STATES DRESSING IS D/I AND HE IS TO LEAVE IT UNTIL SEEN BY DR. LEAL HERE ON SATURDAY. HE WILL SEE DR. BASS SATURDAY AFTER HE LEAVES OUR CLINIC AND SHE PLANS TO REDRESS IT POST EVALUATION THEN ACCORDING TO PT. MIDLINE DRESSING CHANGE DONE TODAY. SITE LOOKS GOOD, FLUSHES EASILY. TOLERATED DAPTO WITHOUT INCIDENT. WILL PLAN TO HAVE WEEKEND INFUSIONS IN THE ED THEN REPORT BACK HERE SATURDAY MORNING.
== END ==
LOC: OPONC 02:49
DX: L03.032 Cellulitis of left toe (principal)
CPT/HCPCS: 95000

== ENCOUNTER → 2018-11-08 | Outpatient (CLI) | payer OTHER | LOC: OPONC 11-06 01:55 | DX: L03.032 Cellulitis of left toe (principal) | CPT/HCPCS: 95000 ==

== ENCOUNTER → 2018-11-09 | Outpatient (CLI) | payer OTHER | LOC: OPONC 07:43 | DX: E11.628 Type 2 diabetes mellitus with other skin complications (principal); L03.032 Cellulitis of left toe; B95.62 Methicillin resistant Staphylococcus aureus infection as the cause of diseases classified elsewhere | CPT/HCPCS: 95000 ==

== ENCOUNTER → 2018-11-10 | Outpatient (CLI) | payer OTHER ==
[2018-11-10 09:25] LABS: HEMATOCRIT 46.2 % (42.0-52.0); HEMOGLOBIN 16.1 gm/dL (14.0-18.0); MCH 31.7 pg (26.0-34.0); MCHC 34.8 g/dL (28.0-37.0); MCV 91.3 fL (80.0-100.0); RBC 5.06 mil/uL (4.50-6.00); RDW 13.5 % (10.5-14.5); WBC 10.6 thou/uL (4.0-11.0)
[2018-11-10 09:39] LABS: ALBUMIN 3.4 g/dL (3.4-5.0); CALCIUM 9.2 mg/dL (8.5-10.1); CREATININE 1.4 mg/dL (0.7-1.3); POTASSIUM 4.5 mmol/L (3.5-5.1); TOTAL BILIRUBIN 0.6 mg/dL (<0.1-1.0); TOTAL PROTEIN 7.1 g/dL (6.4-8.2)
[2018-11-10 16:10] VITALS: BP 108/68
--- NOTE | 2018-11-10 16:12 | NUR ---
IN FOR DAPTOMYCIN INFUSION FOR MRSA INFECTION LEFT 3RD TOE. HAD PARTIAL AMPUTATION OF TOE LAST SATURDAY. DR. LEAL VISITED. SUTURES INTACT TO INCISION WITH SMALL AMOUNT OF DRIED BLOODY DRAINAGE NOTED TO DRESSING. PATIENT HAS APPT WITH DR. BASS THIS AFTERNOON. TOLERATED INFUSION WITHOUT INCIDENT. RECEIVED NEW ORDERS TO DC MIDLINE AND STOP IV ANTIBIOTICS. PATIENT TO CONTINUE CIPRO PO FOR ONE MORE WEEK. WILL RETURN NEXT SATURDAY FOR F/U VISIT WITH DR. LEAL. MIDLINE REMOVED AND PRESSURE DRESSING APPLIED. SCHEDULED NEXT APPT. DISMISSED IN STABLE CONDITION.
== END ==
LOC: OPONC 07:55
PROVIDERS: Specialist
DX: E11.621 Type 2 diabetes mellitus with foot ulcer (principal); L03.032 Cellulitis of left toe; E11.69 Type 2 diabetes mellitus with other specified complication; M86.9 Osteomyelitis, unspecified; E11.42 Type 2 diabetes mellitus with diabetic polyneuropathy
CPT/HCPCS: 95000

== ENCOUNTER → 2018-11-17 | Outpatient (CLI) | payer OTHER ==
[2018-11-17 11:15] VITALS: BP 113/87
[2018-11-17 12:36] LABS: ABSOLUTE NEUTROPHILS 3.8 thou/uL (1.4-8.2); BASOPHILS 0.8 % (0.0-2.0); EOSINOPHILS 2.2 % (0.0-3.0); HEMATOCRIT 48.3 % (42.0-52.0); HEMOGLOBIN 16.8 gm/dL (14.0-18.0); LYMPHOCYTES 18.7 % (24.0-44.0); MCH 31.9 pg (26.0-34.0); MCHC 34.7 g/dL (28.0-37.0); MCV 91.9 fL (80.0-100.0); MONOCYTES 11.1 % (1.0-8.0); PLATELET COUNT 143 thou/uL (150-400); POLYS 67.2 % (36.0-66.0); RBC 5.26 mil/uL (4.50-6.00); RDW 13.7 % (10.5-14.5); WBC 5.7 thou/uL (4.0-11.0)
[2018-11-17 12:52] LABS: CALCIUM 9.3 mg/dL (8.5-10.1); POTASSIUM 4.3 mmol/L (3.5-5.1)
--- NOTE | 2018-11-17 15:38 | NUR ---
IN FOR CLINIC VISIT WITH DR. LEAL. STATED FEELING WELL WITH NO COMPLAINTS. LEFT FOOT AMPUTATION SITE IMPROVING. STILL WITH ERYTHEMA TO TOP OF TOE AND MILD EDEMA. SUTURES INTACT. NO DRAINAGE. DR. LEAL VISITED. NEW ORDERS WRITTEN. TO SEE NEXT WEEK AGAIN. LABS DRAWN AND FAXED RESULTS TO DR. LEAL. DISMISSED IN STABLE CONDITION.
== END ==
LOC: OPONC 00:43
PROVIDERS: Specialist
DX: L03.032 Cellulitis of left toe (principal); M86.8X7 Other osteomyelitis, ankle and foot
CPT/HCPCS: 91016

== ENCOUNTER → 2018-11-24 | Outpatient (CLI) | payer OTHER ==
[2018-11-24 10:18] LABS: HEMATOCRIT 46.1 % (42.0-52.0); HEMOGLOBIN 16.1 gm/dL (14.0-18.0); MCH 32.3 pg (26.0-34.0); MCV 92.3 fL (80.0-100.0); RBC 4.99 mil/uL (4.50-6.00); RDW 13.8 % (10.5-14.5); WBC 5.8 thou/uL (4.0-11.0)
[2018-11-24 10:29] LABS: CALCIUM 9.5 mg/dL (8.5-10.1); POTASSIUM 4.4 mmol/L (3.5-5.1)
[2018-11-24 10:56] VITALS: BP 110/74
--- NOTE | 2018-11-24 10:58 | NUR ---
IN FOR CLINIC VISIT WITH DR. LEAL. PATIENT STATED FEELING WELL. DENIED N/V, FEVER/CHILLS, DIARRHEA. WOUND TO LEFT FOOT HEALING. TO HAVE SUTURES REMOVED THIS AFTERNOON AT ORTHO OFFICE. IN GOOD SPIRITS. LABS WNL. TO CONTINUE CIPRO FOR 1 MORE [address] SEE [address]. LEAL NEXT SATURDAY. DISMISSED IN GOOD CONDITION.
== END ==
LOC: OPONC 01:44
PROVIDERS: Specialist
DX: E11.628 Type 2 diabetes mellitus with other skin complications (principal); L03.032 Cellulitis of left toe; B95.62 Methicillin resistant Staphylococcus aureus infection as the cause of diseases classified elsewhere; E11.69 Type 2 diabetes mellitus with other specified complication; M86.8X7 Other osteomyelitis, ankle and foot; E11.42 Type 2 diabetes mellitus with diabetic polyneuropathy
CPT/HCPCS: 91016

== ENCOUNTER → 2018-12-03 | Outpatient (CLI) | payer OTHER ==
[2018-12-03 09:50] VITALS: BP 91/67
[2018-12-03 10:53] LABS: HEMATOCRIT 46.9 % (42.0-52.0); HEMOGLOBIN 16.3 gm/dL (14.0-18.0); MCH 31.8 pg (26.0-34.0); MCHC 34.8 g/dL (28.0-37.0); MCV 91.4 fL (80.0-100.0); RBC 5.13 mil/uL (4.50-6.00); RDW 13.7 % (10.5-14.5); WBC 6.5 thou/uL (4.0-11.0)
[2018-12-03 11:01] LABS: CALCIUM 8.7 mg/dL (8.5-10.1); CREATININE 1.1 mg/dL (0.7-1.3); POTASSIUM 3.8 mmol/L (3.5-5.1)
--- NOTE | 2018-12-03 11:20 | NUR ---
HERE FOR CLINIC VISIT WITH DR. LEAL AND LABS. PT REPORTS DOING VERY WELL. DR. LEAL ASSESSED LEFT FOOT/3RD TOE AREA. TOE STILL REDDENED AND EDEMATOUS BUT REPORTEDLY MUCH BETTER. PT OVERAL STATES FEELING VERY WELL, NO CONCERNS NOTED. REDRESSED FOOT. DISMISSED IN STABLE CONDITION. SCHEDULED TO RETURN IN 2 WEEKS.
== END ==
LOC: OPONC 00:28
PROVIDERS: Specialist
DX: L03.032 Cellulitis of left toe (principal); E11.69 Type 2 diabetes mellitus with other specified complication; M86.8X7 Other osteomyelitis, ankle and foot; E11.628 Type 2 diabetes mellitus with other skin complications; A49.02 Methicillin resistant Staphylococcus aureus infection, unspecified site; E11.42 Type 2 diabetes mellitus with diabetic polyneuropathy; M20.40 Other hammer toe(s) (acquired), unspecified foot; E11.51 Type 2 diabetes mellitus with diabetic peripheral angiopathy without gangrene; I10 Essential (primary) hypertension
CPT/HCPCS: 91016

== ENCOUNTER → 2018-12-15 | Outpatient (CLI) | payer OTHER ==
[2018-12-15 10:00] VITALS: BP 118/74
[2018-12-15 12:04] LABS: ABSOLUTE NEUTROPHILS 3.4 thou/uL (1.4-8.2); BASOPHILS 0.7 % (0.0-2.0); EOSINOPHILS 2.7 % (0.0-3.0); HEMATOCRIT 48.6 % (42.0-52.0); HEMOGLOBIN 16.8 gm/dL (14.0-18.0); LYMPHOCYTES 21.6 % (24.0-44.0); MCH 31.7 pg (26.0-34.0); MCHC 34.6 g/dL (28.0-37.0); MCV 91.6 fL (80.0-100.0); MONOCYTES 10.1 % (1.0-8.0); PLATELET COUNT 168 thou/uL (150-400); POLYS 64.9 % (36.0-66.0); RDW 13.6 % (10.5-14.5); WBC 5.2 thou/uL (4.0-11.0)
[2018-12-15 12:11] LABS: CALCIUM 9.4 mg/dL (8.5-10.1); CREATININE 0.9 mg/dL (0.7-1.3); POTASSIUM 4.1 mmol/L (3.5-5.1)
--- NOTE | 2018-12-15 17:31 | NUR ---
IN FOR CLINIC VISIT WITH DR. LEAL. WOUND TO LEFT FOOT HEALED. NO REDNESS, EDEMA OR DRAINAGE NOTED. LABS WITHIN NORMAL LIMITS. PATIENT STILL TAKING CIPRO AND HAS A COUPLE OF WEEKS LEFT TO TAKE. PLAN IS TO SEE PATIENT IN 2 WEEKS AND HIS TREATMENT WILL BE CONPLETED. AT THAT TIME. DISMISSED IN GOOD CONDITION.
== END ==
LOC: OPONC 01:20
PROVIDERS: Specialist
DX: E11.628 Type 2 diabetes mellitus with other skin complications (principal); L03.032 Cellulitis of left toe; E11.69 Type 2 diabetes mellitus with other specified complication; M86.8X7 Other osteomyelitis, ankle and foot; A49.02 Methicillin resistant Staphylococcus aureus infection, unspecified site; E11.42 Type 2 diabetes mellitus with diabetic polyneuropathy; E11.51 Type 2 diabetes mellitus with diabetic peripheral angiopathy without gangrene; I10 Essential (primary) hypertension; M31.30 Wegener's granulomatosis without renal involvement; M20.42 Other hammer toe(s) (acquired), left foot
CPT/HCPCS: 91016

== ENCOUNTER → 2018-12-29 | Outpatient (CLI) | payer OTHER ==
[2018-12-29 09:55] VITALS: BP 101/74
[2018-12-29 10:07] LABS: HEMATOCRIT 48.5 % (42.0-52.0); HEMOGLOBIN 16.9 gm/dL (14.0-18.0); MCH 31.7 pg (26.0-34.0); MCHC 34.9 g/dL (28.0-37.0); MCV 90.9 fL (80.0-100.0); RBC 5.34 mil/uL (4.50-6.00); RDW 13.5 % (10.5-14.5); WBC 6.6 thou/uL (4.0-11.0)
[2018-12-29 10:17] LABS: CREATININE 1.1 mg/dL (0.7-1.3)
--- NOTE | 2018-12-29 11:22 | NUR ---
IN FOR CLINIC VISIT WITH DR. LEAL. PATIENT STATED FEELING WELL. LEFT FOOT 2ND TOE HEALED. SMALL AMOUNT OF EDEMA NOTED TO 3RD TOE. DR. LEAL VISITED AND STATED NO FURTHER VISITS ARE NEEDED. FOOT IS HEALED. INSTRUCTED PATIENT TO CALL IF STARTS HAVING MORE EDEMA, REDNESS. DISMISSED IN GOOD CONDITION.
== END ==
LOC: OPONC 01:11
PROVIDERS: Specialist
DX: E11.69 Type 2 diabetes mellitus with other specified complication (principal); M86.8X7 Other osteomyelitis, ankle and foot; L03.116 Cellulitis of left lower limb; E11.42 Type 2 diabetes mellitus with diabetic polyneuropathy; M20.42 Other hammer toe(s) (acquired), left foot; E11.51 Type 2 diabetes mellitus with diabetic peripheral angiopathy without gangrene; I10 Essential (primary) hypertension
CPT/HCPCS: 91016

== ENCOUNTER 2019-08-06 13:36 | Inpatient (IN) | payer OTHER ==
[~2019-08-06] VITALS: Ht 190.5 cm; Wt 135.7 kg
--- NOTE | 2019-08-06 16:04 | NUR ---
PT ARRIVED [id number]. CAME FROM DOCTORS /BIOMEDICAL MANAGER OFFICE. PT ALERT XS 4. LUNGS CTA BS'S POSITIVE XS 4. HAD BM 08/05/19. PT IS AMBULATORY WITH STEADY GAIT. HAS 4 TH TOE ON LEFT FOOT RED AND WITH CELLULITIS. MEASURES 4 CM [address] DANIEL PAGEJerry TO LET PATIENT KNOW HE IS ADMITTED TO ROOM 447. PT IS PLEASANT AND COOPERATIVE WITH CARE. NO PAIN OR RESP DISTRESS NOTED.
--- NOTE | 2019-08-06 16:20 | NUR ---
WOUND CARE PICTURES TAKEN WITH MEASUREMENTS. IN CHART.
[2019-08-06 17:31] LABS: ABSOLUTE NEUTROPHILS 6.4 thou/uL (1.4-8.2); BASOPHILS 0.6 % (0.0-2.0); EOSINOPHILS 0.8 % (0.0-3.0); HEMATOCRIT 51.7 % (42.0-52.0); HEMOGLOBIN 17.6 gm/dL (14.0-18.0); LYMPHOCYTES 13.6 % (24.0-44.0); MCH 31.6 pg (26.0-34.0); MCHC 33.9 g/dL (28.0-37.0); MCV 93.1 fL (80.0-100.0); MONOCYTES 7.9 % (1.0-8.0); PLATELET COUNT 181 thou/uL (150-400); POLYS 77.1 % (36.0-66.0); RBC 5.56 mil/uL (4.50-6.00); RDW 13.6 % (10.5-14.5); WBC 8.3 thou/uL (4.0-11.0)
[2019-08-06 17:41] VITALS: BP 105/75
[2019-08-06 17:43] LABS: URINE BILIRUBIN NEGATIVE (Negative); URINE BLOOD NEGATIVE (Negative); URINE CLARITY CLEAR; URINE COLOR YELLOW; URINE GLUCOSE-RANDOM* NEGATIVE (Negative); URINE KETONES NEGATIVE (Negative); URINE LEUKOCYTES-REFLEX NEGATIVE (Negative); URINE NITRITE-REFLEX NEGATIVE (Negative); URINE PROTEIN (DIPSTICK) NEGATIVE (Negative); URINE UROBILINOGEN 0.2 E.U./dl (0.2-1.0)
[2019-08-06 17:48] LABS: ALBUMIN 3.6 g/dL (3.4-5.0); CALCIUM 9.3 mg/dL (8.5-10.1); CREATININE 1.1 mg/dL (0.7-1.3); MAGNESIUM 2.1 mg/dL (1.8-2.4); POTASSIUM 4.3 mmol/L (3.5-5.1); TOTAL BILIRUBIN 0.9 mg/dL (<0.1-1.0); TOTAL PROTEIN 7.2 g/dL (6.4-8.2)
[2019-08-06 21:30] VITALS: BP 99/62
--- NOTE | 2019-08-07 04:10 | NUR ---
ASSUMED CARE OF PT @1900 PT ASSESSED AT START OF SHIFT. DENIES PAIN, CALM AND COOPERATIVE. IV INTACT IN LFT HAND AND ABX INFUSING. WOUND CULTURED AND SENT TO LAB. DR BASS CALLED TO INFORM PT FOR MRI IN THE AM AND ORDERS PLACED FOR NPO AFTER BREAKFAST. DRESSING INTACT IN LFT FOOT. URINAL AT BEDSIDE. FALL PREC INPLACE AND CALL LIGHT WITHIN REACH WILL CONT WITH POC TILL EOS.
[2019-08-07 05:10] VITALS: BP 121/81
--- NOTE | 2019-08-07 08:50 | NUR ---
PT LEFT UNIT AT 0840 FOR MRI
--- NOTE | 2019-08-07 10:28 | NUR ---
RECEIVED ORDERS FOR OT EVAL AND TREAT, MET PATIENT THIS A.M, UP WALKING IN ROOM AND FINISHING BREAKFAST. EDUCATED ROLE OF OT IN ACUTE CARE, PATIENT DEMONSTRATED UNDERSTANDING AND HAD NO FURTHER CONCERNS/QUESTIONS, CONFIDENT IN ABILITIES TO PERFORM ALL SELF CARES, TRANSFERS AND IADLS AT HOME. AT THIS TIME, DOES NOT FEEL HE NEEDS OT SERVICES AND POLITELY DECLINED. INDEPENDENT AT HOME, [facility] AND USES ELEVATOR. HAS GRAB BARS ALL AROUND BATHROOM, HE STATES. HAS NEIGHBORS THAT HELPS OUT IF NEEDED AFTER D/C.
--- NOTE | 2019-08-07 10:47 | NUR ---
ORDERS RECEIVED FOR EVAL AND TREAT. SPOKE WITH Pt WHO STATES HE JUST GOT BACK TO BED AFTER WALKING TO BATHROOM AND BACK. Pt STATES HE IS HAVING NO DIFFICULTY WITH HIS MOBILITY AND IS DECLINING A FORMAL P.T. EVAL
[2019-08-07 11:45] VITALS: BP 109/58
--- NOTE | 2019-08-07 12:15 | NUR ---
ASSESSMENT-PT LIVES AT HOME ALONE. HE WALKS ON HIS OWN AND DOES HIS OWN ADLS. PT DRIVES. HE HAS A SISTER HERE IN [place] AND A SONIN [place]. PT DOES HIS OWN COOKING, CLEANING AND LAUNDRY. PT HAS DONE OUTPT IV ABX HERE IN THE PAST BUT SAYS HE DID NOT HAS HH SERVICES THRU [facility] LAST ADMISSION. PT VOICES NO CONCERNS RELATED TO DC AT THIS TIME. FOLLOWING TO ASSIST WITH DC PLANNING.
--- NOTE | 2019-08-07 13:50 | NUR ---
CASEDISCUSSED WITH DR Bret LEAL AND HE WANTS TO CHECK INTO COVERAGE FOR IV ABX. REFERRAL FAXED TO [facility] TO CHECK BENEFITS.
--- NOTE | 2019-08-07 15:01 | NUR ---
PT HAS 100% COVERAGE FOR IV ABX THRU 08/22/19, NEW PLAN STARTS 08/23/19 & PT WILL HAVE $500 DED, ON CURRENT VACO PT WOULD HAVE COST OF 124.90 AFTER 08/23 TILL $500 DED MET.
--- NOTE | 2019-08-07 18:05 | NUR ---
PT RETURNED AT THIS TIME FROM POST HAD LEFT FOOT 4 TH TOE PARTIAL AMPUTATION . PT ALERT XS 4 NO PAIN NO RESP DISTRESS, IV FLUIDS INFUSING ATE DINNER FROM [employer] SNACK TRAY AND YOGURT AND APPLESAUCE AND DIET SPRITE FOR DINNER. SISTER HERE TO VISIT. Yulia 97.4 20 96 127/88 O2 SAT =97% RA.
--- NOTE | 2019-08-07 20:33 | HC ---
[facility] [address] [address] CONSULTATION Name: TARAH MELGAR Room #: 447-P ADM IN M.R.#: [id number] Admission: 08/06/19 Attend Phys: Dora Walker MD Discharge: Date of : 49 Report #: [id number] THIS REPORT FOR: //name// CC: Dora Walker FAM unknown Wendy Hinkle HISTORY OF PRESENT ILLNESS: The patient is a 68-year-old male with history of diabetes with neuropathy, hypertension, hyperlipidemia and Kemal's who is being seen for a nonhealing left fourth toe wound with cellulitis who was admitted directly from my podiatry office yesterday for further workup and to rule out osteomyelitis . The patient presented after having a few days of swelling, redness and pain to his fourth toe. He has had a history of his left second and third toe partial amputations due to bone infection over the last few years. He denies any fever, chills, nausea or vomiting. LOWER EXTREMITY PHYSICAL EXAMINATION: Right foot without any open wounds, left foot with palpable pedal pulses. CFT brisk to all toes or distal stumps of toes. Light touch sensation diminished to all pedal dermatomes, bilateral. There are hammertoes, left 4 and 5 with the left fourth toe being edematous and erythematous with some ascending cellulitis on the dorsal forefoot of the left and swelling. There is an ulceration to the lateral distal tuft down to dermis and there is an absent nail present. There is no obvious fluctuance or abscess. There is no pus. There is no malodor, but there is significant edema and erythema to the toe. There is a positive drainage present at the site of the ulcer. ASSESSMENT AND PLAN: This is a 68-year-old diabetic male with a history of neuropathy, history of multiple partial toe amputations, admitted for cellulitis and further workup of the left fourth toe to rule out osteomyelitis and abscess. The patient is afebrile and no leukocytosis. X-ray was already performed here with concerns of bone infection to the distal phalanx left fourth toe. The patient is pending an MRI at this point. I did review with the patient that if the MRI confirms that there is osteomyelitis to the distal phalanx that we will go forward with a partial toe amputation to the left fourth. He will be n.p.o. after breakfast and he will also be followed closely by Infectious Disease, Dr. Alejandre for further recommendations and he is currently on IV antibiotics. In addition, Dr. Abraham was consulted for further recommendations. At this time, he will remain nonweightbearing to his left foot with rest and elevation of the left foot. He does have a Cam boot at bedside present for transfers to the bathroom only. In addition, I recommend a light dry sterile dressing at this point. A wound culture was also obtained from the left fourth toe in my podiatry office [address] [address] CONSULTATION Name: TALIATARAH FLOR Room #: 447-P [facility] IN M.R.#: [id number] Admission: 08/06/19 Attend Phys: Dora Walker MD Discharge: Date of : 49 Report #: [id number] . A surgical consent will be placed in the chart and we will await further recommendations with the MRI. With surgery, he prefers to do local anesthesia only as he has had this done in the past for a previous surgery and did well. Answered all his questions and concerns. Wendy Hinkle <ELECTRONICALLY SIGNED> By: Wendy Hinkle DPM 08/07/19 2033 0733 0834 Wendy Hinkle DPM /nt
[2019-08-07 22:05] VITALS: BP 126/78
[2019-08-08] VITALS: BP 110/80
[2019-08-08 00:07] LABS: GLYCOHEMOGLOBIN (HGB A1C) 6.1 % (4.8-5.6)
[2019-08-08 03:50] VITALS: BP 104/66
--- NOTE | 2019-08-08 04:19 | NUR ---
PATIENT ALERT AND ORIENTED X4. VOIDING PER URINAL WITH LIGHT VERONIKA URINE. DRESSING TO LEFT FOOT IS ORIGINAL, DRY AND INTACT. BS MONITORED PER ORDER. IVF INFUSING W/O COMPLICATION AFTER THIS NURSE STARTED A NEW IV AT BEGINNING OF SHIFT DUE TO INFILTRATION. PATIENT STATED THAT HE DID NOT WANT VICODIN SO HE WAS MEDICATED WITH TYLENOL. HOWEVER, THIS DID NOT TAKE CARE OF HIS PAIN WHICH HE RATED AT A 9. PATIENT THEN AGREED TO TRY THE VICODIN AND HIS PAIN LEVEL EVENTUALLY DECREASED TO A 6. HE WAS MEDICATED A SECOND TIME AND IS SLEEPING AT TIME OF THIS NOTE. A VANCOMYCIN TROUGH WAS DRAWN BEFORE SHIFT CHANGE WHICH WAS 17. THIS NURSE HUNG THE MEDICATION. WILL MONITOR.
[2019-08-08 07:46] VITALS: BP 117/72
--- NOTE | 2019-08-08 16:35 | NUR ---
PT ASSESSED AT START OF SHIFT. DR. NERI IN TO CHANGE SURGICAL DRESSING THIS AM. DRESSING NOT TO BE CHANGED UNTIL DR. NERI CHANGES IT. PT TO WEAR CAM WALKER IF NEEDS TO GO TO THE BATHROOM OTHERWISE TO STAY IN BED OR RECLINER W/ FOOT ELEVATED. NO C/O PAIN. HAD LARGE BM AND FEELS MUCH BETTER.
[2019-08-08 19:40] VITALS: BP 138/84
--- NOTE | 2019-08-09 05:17 | NUR ---
PATIENT ALERT AND ORIENTED X4. UP TO CHAIR MOST OF THE NIGHT. IVF INFUSING WITHOUT COMPLICATION. VOIDING PER URINAL. BS MONITORED PER ORDER. DRESSING TO LEFT FOOT TO REMAIN INTACT UNTIL VISIT WITH DR. NERI. PATIENT TO USE BOOT WHEN AMBULATING. TEMP AT BEGINNING OF SHIFT 99.9 - GIVEN TYLENOL AND TEMP DOWN TO 98.4 AT 2110. RESTING QUIETLY. COOPERATIVE WITH CARE AND PLEASANT. WILL MONITOR.
[2019-08-09 05:54] LABS: HEMATOCRIT 47.3 % (42.0-52.0); HEMOGLOBIN 15.9 gm/dL (14.0-18.0); MCH 31.1 pg (26.0-34.0); MCHC 33.5 g/dL (28.0-37.0); MCV 92.8 fL (80.0-100.0); RBC 5.09 mil/uL (4.50-6.00); WBC 6.9 thou/uL (4.0-11.0)
[2019-08-09 06:21] LABS: CALCIUM 8.9 mg/dL (8.5-10.1); MAGNESIUM 1.9 mg/dL (1.8-2.4); POTASSIUM 3.8 mmol/L (3.5-5.1)
[2019-08-09 08:50] VITALS: BP 133/88
[2019-08-09 18:00] VITALS: BP 127/86
[2019-08-09 19:15] VITALS: BP 120/75
[2019-08-10] VITALS (8 sets, daily range): BP systolic 131–132; BP diastolic 70–74
--- NOTE | 2019-08-10 00:59 | NUR ---
PT WAS OBSERVED SITTING UP IN THE RECLINER IN HIS ROOM WITH HIS FOOT ELEVATED AT THE START OF SHIFT.PT CONT ON IV ABX AND IVF.L FOOT DRSG C/D/I.BG MONITORED WITH COVERAGE AT HS.URINAL AT BEDSIDE.PT RESTING ON HIS BED AT THIS TIME.CALL LIGHT WITHIN REACH.
--- NOTE | 2019-08-10 08:20 | HC ---
[facility] [place] [place] [address] CONSULTATION Name: TARAH MELGAR Room #: 447-P [facility] IN M.R.#: [id number] Admission: 08/06/19 Attend Phys: Dora Walker MD Discharge: Date of : 49 Report #: [id number] THIS REPORT FOR: //name// CC: Dora Walker FAM unknown Wendy Hinkle DATE OF SERVICE: 08/07/2019 HISTORY OF PRESENT ILLNESS: This is a 68-year-old male patient who was admitted to the hospital with a fourth toe tip ulceration with underlying osteomyelitis. He is scheduled to proceed to surgical treatment with Dr. Paz with amputation of the fourth toe. He denies significant pain. He has had partial amputations of other toes of the left foot as well. The patient denies any pain associated with this. He does have a history of hypertension and diabetes mellitus. PAST MEDICAL HISTORY: Positive for hypertension, hyperlipidemia, type 2 diabetes mellitus, left second toe partial amputation, previous open reduction and internal fixation of a left wrist fracture, left tibia, fibula and ankle fractures. He has a history of Osmel's granulomatosis, cellulitis left third toe, colonoscopy, asthma, previous MRSA. FAMILY HISTORY: Positive for heart disease, cancer, and diabetes. SOCIAL HISTORY: Negative for alcohol or tobacco use. MEDICATIONS: Include Tylenol, Lipitor, Ventolin, Ozempic, Myrbetriq, Zestoretic, aspirin, prednisone, Symbicort, daptomycin. ALLERGIES: PENICILLIN. REVIEW OF SYSTEMS: CONSTITUTIONAL: The patient denies fever, chills or weight loss. NEUROLOGICAL: The patient denies focal weakness, numbness or tingling. EYES: The patient denies visual changes, redness, or drainage. ENT: The patient denies earache, nasal drainage or sore throat. CARDIOVASCULAR: The patient denies chest pain, palpitations or diaphoresis. PULMONARY: The patient denies cough or shortness of breath.. GASTROINTESTINAL: The patient denies nausea, vomiting, diarrhea or abdominal pain. ORTHOPEDIC: The patient does note the ulceration on the left fourth toe. Other systems in 14-point review of systems are negative. PHYSICAL EXAMINATION: VITAL SIGNS: At this time include temperature 36.8, pulse 62, respiratory rate [address] [address] CONSULTATION Name: TARAH MELGAR Room #: 447-P [facility] IN M.R.#: [id number] Admission: 08/06/19 Attend Phys: Dora Walker MD Discharge: Date of : 49 Report #: [id number], blood pressure 109/58. GENERAL: This is a somewhat chronically ill-appearing male patient who appears to be in minimal distress. HEENT: Head normocephalic. Nose and throat clear. NECK: Supple. LUNGS: Clear. ABDOMEN: Soft. Bowel sounds present. EXTREMITIES: Lower extremities demonstrate palpable distal pulses. His feet are pink, warm and dry. There is a circular ulceration at the tip of the fourth toe. There is no obvious bony exposure to palpation in this area. LABORATORY DATA: Include white blood cell count 8.3 with hemoglobin 17.6. Sodium 134, potassium 3.9, chloride 102, CO2 of 24, BUN 12, creatinine 1.0. Albumin is 3.6. CLINICAL IMPRESSION: 1. Diabetic ulceration to the tip of the left fourth toe with underlying osteomyelitis. 2. Diabetes mellitus. 3. Peripheral neuropathy. RECOMMENDATIONS: At this point in time, I am in complete agreement that an amputation of the fourth toe would be appropriate treatment for this. No dressing recommendations for now. We will follow him postoperatively, continuation of current medications and ongoing nutritional support would be appropriate. I appreciate being asked to see him in consultation. <ELECTRONICALLY SIGNED> By: Fady Abraham MD 08/10/19 0820 1219 1246 Fady Abraham MD /nt
--- NOTE | 2019-08-10 09:09 | NUR ---
PT UP IN BEDSIDE CHAIR. ALERT XS 4. IV ABT INFUSING. PT W/O PAIN OR RESP DISTRESS THIS AM. DR BASS HERE TO SEE PATIENT TOOK WOUND CARE PHOTO THIS AM. PT HAD PARTIAL AMPUTATION TO LEFT FOOT 4 TH TOE. PT HAS SUTURES PT TO DISCHARGE TODAY AFTER DR LEAL SEE'S PATIENT AND DECIDES ON HOME ABT.
--- NOTE | 2019-08-10 12:24 | HC ---
[facility] [place] [address] [address] [place] [address] CONSULTATION Name: TARAH MELGAR Room #: 447-P ADM IN M.R.#: [id number] Admission: 08/06/19 Attend Phys: Dora Walker MD Discharge: Date of : 48 Report #: [id number] THIS REPORT FOR: //name// CC: Dora Walker FAM unknown Wendy Hinkle DATE OF SERVICE: 08/07/2019 INFECTIOUS DISEASE CONSULTATION REASON FOR CONSULTATION: I was asked to evaluate concerning osteomyelitis of his distal left fourth toe. HISTORY OF PRESENT ILLNESS: A 68-year-old with underlying diabetes, peripheral neuropathy, who has had previous distal amputations of toes 2 and 3 on the left leg. Last treatment was in September of this year. He was doing well until about 10 days ago when he noticed an ulceration to the distal aspect of his left fourth toe. This then began swelling with associated erythema extending up his foot. No fever, chills or sweats. He was seen by Dr. Hinkle who recommended inpatient care. He is now on vancomycin. Workup last September noted reasonable blood flow to the ankle. REVIEW OF SYSTEMS: Ten-point review was negative other than what has been described above. ALLERGIES: TO PENICILLIN, CEPHALOSPORINS. MEDICATIONS: Included Tylenol, Lipitor, Ventolin inhaler, semaglutide, mirabegron, Zestoretic, aspirin, prednisone, Symbicort. Reports being on 60 mg of prednisone a day. He was on Keflex prior to his admission given by Dr. Hinkle. PAST MEDICAL HISTORY: Hypertension, hyperlipidemia, diabetes, distal toe amputations, left wrist ORIF, left tib-fib ORIF, Osmel's granulomatosis, asthma. FAMILY HISTORY: Noncontributory. SOCIAL HISTORY: Nonsmoker, no significant alcohol intake. PHYSICAL EXAMINATION: VITAL SIGNS: He is afebrile and hemodynamically stable. SKIN: Without rash or decubitus other than what will be described in his extremity examination. No palpable adenopathy. EYES: Without lesion. [address] [address] CONSULTATION Name: TARAH MELGAR Room #: 447-P [facility] IN M.R.#: [id number] Admission: 08/06/19 Attend Phys: Dora Walker MD Discharge: Date of : 49 Report #: [id number] MOUTH: Without lesion. NECK: Supple. LUNGS: Clear. HEART: Regular, without murmur. ABDOMEN: Soft and nontender. EXTREMITIES: With left foot distal amputations of toes #2 and 3. Sausage deformity, erythema, ecchymosis toe #4 with ulceration to the distal aspect, which bled significantly. Cellulitis and erythema extending to the dorsal aspect of his foot. Pulses in the left foot were 4+ in the posterior tib. Could not palpate dorsalis pedis. He had 4+ pulse in the popliteal and femoral region. Decreased sensation in his distal foot. NEUROLOGIC: Mood was normal. Strength is normal. LABORATORY STUDIES: Reviewed. Cultures are currently pending. MRI scan reviewed showing osteomyelitis of the distal phalanx of toe #4. IMPRESSION: 1. A 68-year-old diabetic with peripheral neuropathy, left fourth distal toe osteomyelitis with secondary soft tissue infection. 2. Peripheral neuropathy. 3. Vasculopathy. 4. ALLERGY TO PENICILLIN AND CEPHALOSPORINS. RECOMMENDATIONS: Continue with vancomycin and ciprofloxacin. Await culture results. Distal toe amputation to be performed today. We will arrange outpatient infusion postop. <ELECTRONICALLY SIGNED> By: Anthony Alejandre MD 08/10/19 1224 1354 1418 Anthony Alejandre MD /nt
[2019-08-10] MEDS ORDERED: VANCOMYCIN1.5 GM/15 IV (14:43)
--- NOTE | 2019-08-10 16:02 | NUR ---
CONSULTED TO PLACE A PICC FOR A PATIENT DISCHARGING WITH HOME IV ANTIBIOTICS. ORDER AND CONSENT NOTED. THE PROCEDURE WELL BENIFITS AND RISKS DISCUSSED AND HE VERBALIZED UNDERSTANDING. THE LEFT UPPER ARM BASILIC WAS WIDLEY PATENT. A #4F SINGLE LUMEN POWER PICC WAS PLACED AFTER A BEDSIDE TIMEOUT WAS COMPLETED PER HOSPITAL POLICY. PICC WAS TRIMMED TO 50CM AND ADVANCED WITHOUT DIFFICULTY. A STAT CHEST XRAY CONFERMED LINE IN GOOD POSITION FOR USE
--- NOTE | 2019-08-10 16:46 | NUR ---
PT DISCHARGED AT THIS TIME. NO PAIN OR RESP DISTRESS AT DISCHARGE. DISCHARGE PAPERS SIGNRD AND COPY IN CHART. ALL BELONGINGS PACKED AND SENT WITH PATIENT.
--- NOTE | 2019-08-10 17:40 | NUR ---
FAXED DC ORDERS TO [facility] AND CONFIRMED RECEIPT. S/W PT AND ALERTED HIM THAT [facility] WOULD NOT BE ABLE TO START CARE UNTIL WED. [facility] AND [facility] NOT ABLE TO ACCEPT OR DO NOT TAKE PT'S INS.
--- NOTE | 2019-08-11 18:06 | PATH ---
[facility] [address] [place] [address] PATHOLOGY RPT PROCEDURE Name: TARAH MELGAR CHACHO Room #: 447-P DIS IN M.R.#: [id number] Admission: 08/06/19 Date of : 48 Discharge: 08/10/19 Report #: [id number] Path Case #: [id number] [facility] Accession Number: [id number] . 01 Material submitted: . toe - DISTAL PHALANX LET 4TH TOE. Modifiers: left, fourth, distal . 01 Clinical history: . Osteomyelitis . 02 Diagnosis: Toe, distal phalanx left fourth toe, amputation: - Skin and subcutaneous tissue showing ulceration, gangrenous necrosis and marked acute inflammation. - Acute inflammation extends into underlying bone associated with acute osteomyelitis. - Bone margin viable. . (IUV:mml; 08/11/2019) QLM 08/11/2019 1424 Local . 02 Electronically signed: . Luz Maria Son MD, Pathologist NPI- [id number] . 01 Gross description: . The specimen is received in formalin, labeled "Tarah Melgar, distal phalanx left fourth toe". Received is a partially dated digit measuring 2.3 x 2.3 x 1.6 cm in greatest dimensions. The bone margin is smooth and concave in appearance, consistent with disarticulation. The bone and soft tissue margins are inked black. The nail is not grossly distinct. At the distal/lateral aspect, there is a poorly circumscribed, irregular in contour and pink-radford to light radford lesion measuring 1.9 x 1.4 cm, which grossly approaches the inked margin. A full thickness cross-section through the lesion is submitted in cassette A1, following decalcification. ([facility]; 08/10/2019) QA/QA 08/10/2019 0915 Local . 02 Pathologist provided ICD-10: L98.499, I96, L98.9, M86.172 . 02 CPT . 481998, [id number] Specimen Comment: A courtesy copy of this report has been sent to [phone] Specimen Comment: [id number] Specimen Comment: Report sent to / [place] [address] PATHOLOGY RPT PROCEDURE Name: TARAH MELGAR Room #: 447-P DIS IN M.R.#: [id number] Admission: 08/06/19 Date of : 48 Discharge: 08/10/19 Report #: [id number] Path Case #: [id number] Performed at: 01 [facility] [place] [address], [place] [id number] MD Rigo Nails MD Phone: [phone] Performed at: [address] [id number] MD Luz Maria Son MD Phone: [phone]
== END 2019-08-10 16:34 | disposition home health service (06) | DRG 617 ==
LOC: 4S 13:36 → ENTRNSPT 08-10 16:17 → 4S 08-10 16:34
PROVIDERS: Internal Medicine; Nurse Practitioner; ADMIT Hospitalist
PROC: 0Y6W0Z3 Detachment at Left 4th Toe, Low, Open Approach (ICD-10-PCS; principal; 2019-08-07)
PROC: 02HV33Z Insertion of Infusion Device into Superior Vena Cava, Percutaneous Approach (ICD-10-PCS; 2019-08-10)
DX: E11.69 Type 2 diabetes mellitus with other specified complication (principal); L03.116 Cellulitis of left lower limb; M31.9 Necrotizing vasculopathy, unspecified; M86.8X7 Other osteomyelitis, ankle and foot; E11.621 Type 2 diabetes mellitus with foot ulcer; I10 Essential (primary) hypertension; E78.5 Hyperlipidemia, unspecified; J45.909 Unspecified asthma, uncomplicated; E11.42 Type 2 diabetes mellitus with diabetic polyneuropathy; Z88.0 Allergy status to penicillin; Z79.4 Long term (current) use of insulin; Z89.422 Acquired absence of other left toe(s); Z86.14 Personal history of Methicillin resistant Staphylococcus aureus infection; Z82.49 Family history of ischemic heart disease and other diseases of the circulatory system; Z83.3 Family history of diabetes mellitus; Z80.9 Family history of malignant neoplasm, unspecified; Z79.82 Long term (current) use of aspirin; Z79.899 Other long term (current) drug therapy; Z88.8 Allergy status to other drugs, medicaments and biological substances; Z87.81 Personal history of (healed) traumatic fracture
CPT/HCPCS: 10102; 27000; 50010; 50101; 50386; 57091; 57178

== ENCOUNTER 2019-09-29 02:45 | Emergency (ER) | payer OTHER ==
[~2019-09-29] VITALS: Ht 185.4 cm; Wt 135.6 kg
[~2019-09-29 02:45] MED LIST changes: +VANCOMYCIN1.5 GM/15 IV
[2019-09-29] MEDS ORDERED: MECLIZINE HCL25 M1 PO (05:14)
[2019-09-29 05:25] VITALS: BP 145/88
== END 2019-09-29 05:26 | disposition home or self-care (01) ==
LOC: ER 02:45
DX: H92.02 Otalgia, left ear (principal); R42 Dizziness and giddiness; E11.9 Type 2 diabetes mellitus without complications; I10 Essential (primary) hypertension; E78.5 Hyperlipidemia, unspecified; J45.909 Unspecified asthma, uncomplicated; Z88.0 Allergy status to penicillin